=== PATIENT | female | born 1995 | race Caucasian/White ===

== ENCOUNTER 2018-01-10 06:35 | Inpatient (IN) | payer OTHER, MEDICAID ==
[2018-01-10] MEDS: IBUPROFEN 600 MG TAB PO ×4 (07:25→23:49)
[2018-01-10] MEDS: LACTATED RINGER'S 1,000 ML IV* (07:25)
[2018-01-10] MEDS: OXYTOCIN 30 UNITS/LR 500 ML IV ×3 (07:27→14:04)
[2018-01-10] MEDS ORDERED: MISOPROSTOL 200 MCG TAB PR ×2 (07:30→10:30)
[2018-01-10] MEDS ORDERED: OXYTOCIN 30 UNITS/LR 500 ML IV ×2 (07:30→10:30)
[2018-01-10] MEDS ORDERED: METHYLERGONOVINE 0.2 MG INJ IM ×2 (07:30→10:30)
[2018-01-10] MEDS ORDERED: CARBOPROST 250 MCG INJ IM ×2 (07:30→10:30)
[2018-01-10] MEDS ORDERED: LIDOCAINE 1% (MPF) 30 ML INJ INJ (07:30)
[2018-01-10 07:34] LABS: ADD MAN DIFF? NO
[2018-01-10 07:41] LABS: BASOPHILS % 0.2 % (0.0-2.0); EOSINOPHILS # 0.1 10^3/ul (0.0-0.5); EOSINOPHILS % 0.5 % (0.0-7.0); HEMATOCRIT 41.6 % (37.0-47.0); HEMOGLOBIN 13.8 g/dl (12.0-16.0); LYMPHOCYTES # 2.6 10^3/ul (0.8-2.9); LYMPHOCYTES % 20.4 % (15.0-51.0); MEAN CORPUSCULAR HEMOGLOBIN 26.5 pg (29.0-33.0); MEAN CORPUSCULAR HGB CONC 33.2 g/dl (32.0-37.0); MEAN CORPUSCULAR VOLUME 79.8 fl (82.0-101.0); MEAN PLATELET VOLUME 11.7 fl (7.4-10.4); MONOCYTE # 0.8 10^3/ul (0.3-0.9); MONOCYTES % 5.8 % (0.0-11.0); NEUTROPHIL # 9.4 10^3/ul (1.6-7.5); NEUTROPHILS % 72.3 % (39.0-77.0); PLATELET COUNT 199 10^3/UL (140-415); RED BLOOD COUNT 5.21 10^6/ul (4.20-5.40); RED CELL DISTRIBUTION WIDTH 14.3 % (11.5-14.5)
[2018-01-10 07:41] LABS: WHITE BLOOD COUNT 12.9 10^3/ul (4.8-10.8)
[2018-01-10 08:24] LABS: PROTIME 12.2 Sec (11.9-14.9)
[2018-01-10 08:25] LABS: PARTIAL THROMBOPLASTIN TIME 26.3 Sec (25.0-35.0)
[2018-01-10 08:34] LABS: HEPATITIS B SURFACE ANTIGEN NEGATIVE (NEGATIVE)
[2018-01-10] MEDS ORDERED: ZOLPIDEM 5 MG TAB PO (10:30)
[2018-01-10] MEDS ORDERED: NACL 0.9% 3 ML SYG IV (10:30)
[2018-01-10] MEDS ORDERED: SENNA/DOCUSATE NA (8.6MG/50MG) TAB PO (10:30)
[2018-01-10 12:04] LABS: AMPHETAMINE/METHAMPHETAMINE Negative (NEGATIVE); BARBITURATES Negative (NEGATIVE); BENZODIAZEPINES Negative (NEGATIVE); CANNABINOIDS Negative (NEGATIVE); COCAINE Negative (NEGATIVE); OPIATES Negative (NEGATIVE)
[2018-01-10] MEDS: LANOLIN 7 GM TUBE TOP (12:47)
[2018-01-10] MEDS: WITCH HAZEL/GLYCERIN PAD PR (12:47)
[2018-01-10 16:06] LABS: RAPID PLASMA REAGIN NONREACTIVE (NR)
[2018-01-10] MEDS: SENNA/DOCUSATE NA (8.6MG/50MG) TAB PO (20:54)
[2018-01-10] MEDS: OXYCODONE/ASPIRIN (4.88/325) TAB PO (22:35)
[2018-01-11] MEDS: IBUPROFEN 600 MG TAB PO ×4 (05:59→23:31)
[2018-01-11 09:19] LABS: ADD MAN DIFF? NO
[2018-01-11 09:28] LABS: BASOPHILS % 0.2 % (0.0-2.0); EOSINOPHILS # 0.2 10^3/ul (0.0-0.5); EOSINOPHILS % 1.8 % (0.0-7.0); HEMOGLOBIN 12.3 g/dl (12.0-16.0); IMMATURE GRANS #M 0.09 10^3/ul; IMMATURE GRANS % (M) 0.9 %; LYMPHOCYTES % 20.4 % (15.0-51.0); MEAN CORPUSCULAR HEMOGLOBIN 27.3 pg (29.0-33.0); MEAN CORPUSCULAR HGB CONC 33.2 g/dl (32.0-37.0); MEAN PLATELET VOLUME 11.5 fl (7.4-10.4); MONOCYTE # 0.6 10^3/ul (0.3-0.9); MONOCYTES % 5.6 % (0.0-11.0); NEUTROPHILS % 71.1 % (39.0-77.0); PLATELET COUNT 168 10^3/UL (140-415); RED BLOOD COUNT 4.51 10^6/ul (4.20-5.40); RED CELL DISTRIBUTION WIDTH 14.2 % (11.5-14.5)
[2018-01-11 09:28] LABS: WHITE BLOOD COUNT 9.9 10^3/ul (4.8-10.8)
[2018-01-11] MEDS: SENNA/DOCUSATE NA (8.6MG/50MG) TAB PO ×2 (11:40→21:00)
[2018-01-12] MEDS: IBUPROFEN 600 MG TAB PO ×2 (05:51→12:18)
[2018-01-12] MEDS: OXYCODONE/ASPIRIN (4.88/325) TAB PO (08:04)
[2018-01-12] MEDS: SENNA/DOCUSATE NA (8.6MG/50MG) TAB PO (09:00)
[2018-01-12] MEDS: DIPHTH/TET/ACEL PERTUSS (ADULT) 0.5 ML VIAL IM* (09:00)
== END 2018-01-12 14:50 | disposition home or self-care (01) | DRG 775 ==
LOC: OBT 06:35 → L-D 06:36 → PP1 09:47
PROVIDERS: Obstetrics & Gynecology
PROC: 10E0XZZ Delivery of Products of Conception, External Approach (ICD-10-PCS; principal; 2018-01-10)
DX: O80 Encounter for full-term uncomplicated delivery (principal); Z3A.39 39 weeks gestation of pregnancy; Z37.0 Single live birth
CPT/HCPCS: 80307; 85025; 85610; 85730; 86592; 86850; 86900; 86901; 87340